=== PATIENT | male | born 1990 | race Caucasian/White ===

== ENCOUNTER 2016-10-09 13:11 | Inpatient (IN) | payer BC, OTHER ==
[~2016-10-09] VITALS: Ht 177.8 cm; Wt 65.3 kg
[2016-10-09 20:20] VITALS: BP 121/79
--- NOTE | 2016-10-09 20:20 | NUR ---
INTAKE ASSESSMENT Ht:5'10" Wt: 144lbs BP:121/79, HR: 93, RR: 16, SpO2: 99% T:98.1 Pt is in stable condition to be admitted on the unit. Unit protocols regarding medications and vital signs Q4H explained to pt. Pt verbalized understanding. Will continue to monitor.
--- NOTE | 2016-10-09 21:00 | NUR ---
ADMISSION NOTE COWS:2, CIWA:2 Pt arrived ambulatory from [facility] Intake to the third floor accompanied by a VALIDATION LEADER at 2030. Pt is a 26 year old male patient admitted on 10/09/16 for Benzo, Opiate and Methamphetamine dependency. Pt is full code with NKA. He reports a PMHx of anxiety, depression, right shoulder surgery (2 years ago) and seizure (3 days ago). He denies having a PCP. Pt brought several home medications which have been reconciled. Pt reports that he has been taking Bactrim for his right arm abscess. He reports that he is here for Xanax, Heroin and Meth. He reports that he was at treatment called [facility] from September -November 2015. He describes his current use as: 1. Xanax 1 mg (intermittently) for 2 months Last dose: Ativan 1 mg prior to admission 2. Heroin IV 1/4 gram daily for 2.5 months Last dose: 0.3 gram IV prior to admission 3. Methamphetamine IV 1 gram daily for 7 months Last dose: 0.4 gram IV prior to admission Pt reports his withdrawal symptoms as " nausea, shakes and vomiting." Upon assessment, pt is alert and oriented x4. Pt is somewhat drowsy, calm and cooperative. Speech is clear but delayed. Heart rate is regular. Pt denies chest pain or SOB. PERRLA, breathing is even and unlabored, lung sounds clear in all lobes. Abdomen is soft and non distended. Bowel sounds present in all quadrants. Last BM 10/09/16. Pt reports BM is regular. Pt's skin is warm and dry. He is noted with right arm abcess d/t IV drug use. Site is hard upon palpation. Closed scabs on bilateral hands and back d/t skin picking. And left leg noted with redness and pain upon palpation d/t IV drug use. Photo taken and placed in chart. MD aware of pt's admission. Pt oriented to room and unit. Pt is safe with bed locked in lowest position, side rails up x2 and call light within reach. Will continue to monitor.
[2016-10-09 21:05] LABS: *AMPHETAMINE, URINE POSITIVE (NEGATIVE); *BARBITURATE, URINE NEGATIVE (NEGATIVE); *CANNABINOID, URINE NEGATIVE (NEGATIVE); *COCCAINE, URINE NEGATIVE (NEGATIVE); *OPIATE, URINE POSITIVE (NEGATIVE); *PHENCYCLIDINE SCREEN,URINE NEGATIVE (NEGATIVE)
[2016-10-09] MEDS ORDERED: CLONIDINE HCL 0.1 MG TABLET PO PRN (21:45)
[2016-10-09] MEDS ORDERED: DIAZEPAM 5 MG TABLET PO PRN (21:45)
[2016-10-09] MEDS ORDERED: IBUPROFEN 400 MG TABLET PO PRN (21:45)
[2016-10-09] MEDS ORDERED: BUPRENORPHINE HCL 2 MG TAB.SUBL SL PRN (21:45)
[2016-10-09] MEDS ORDERED: HYDROXYZINE PAMOATE 25 MG CAPSULE PO PRN (21:45)
[2016-10-09] MEDS ORDERED: MIRALAX 17 GM POWD.PACK PO PRN (21:45)
[2016-10-09] MEDS ORDERED: ACETAMINOPHEN 325 MG TABLET PO PRN (21:45)
[2016-10-09] MEDS ORDERED: METHOCARBAMOL 750 MG TABLET PO PRN (21:45)
[2016-10-09] MEDS ORDERED: ONDANSETRON ODT 4 MG TAB.RAPDIS SL PRN (21:45)
[2016-10-09] MEDS ORDERED: DICYCLOMINE HCL 20 MG TABLET PO PRN (21:45)
[2016-10-09] MEDS ORDERED: diphenhydrAMINE 50 MG CAPSULE PO PRN (21:45)
[2016-10-09] MEDS ORDERED: DIAZEPAM 10 MG TABLET PO PRN ×2 (21:45)
[2016-10-09] MEDS ORDERED: LORAZEPAM 2 MG/1 ML VIAL IM PRN (21:45)
[2016-10-09] MEDS ORDERED: LOPERAMIDE HCL 2 MG CAPSULE PO PRN (21:45)
[2016-10-09 23:15] LABS: ETHANOL < 3 MG/DL (0-0)
[2016-10-09 23:17] LABS: ALANINE AMINOTRANSFERASE 24 U/L (16-63); ALKALINE PHOSPHATASE 88 U/L (50-136); ASPARTATE AMINOTRANSFERASE 18 U/L (15-37); BILIRUBIN,TOTAL 0.4 mg/dL (0.2-1.0); CHLORIDE 101 mmol/L (98-107); CREATININE 1.1 mg/dL (0.6-1.3); GLUCOSE 103 mg/dL (74-106); MAGNESIUM 2.1 mg/dL (1.8-2.4); POTASSIUM 3.9 mmol/L (3.5-5.1); TOTAL PROTEIN, SERUM 6.5 g/dL (6.4-8.2); UREA NITROGEN, BLOOD 11 mg/dL (7-18)
[2016-10-09 23:18] LABS: AMYLASE 58 U/L (25-115); CARBON DIOXIDE 33 mmol/L (21-32); LIPASE 120 U/L (73-393)
[2016-10-09 23:27] LABS: BASOPHILS # (AUTO) 0.2 K/uL (0.0-8.0); BASOPHILS % (AUTO) 1.8 % (0.0-2.0); EOSINOPHILS # (AUTO) 0.3 K/uL (0.0-0.7); EOSINOPHILS % (AUTO) 3.7 % (0.0-7.0); HEMATOCRIT 36.9 % (40-50); HEMOGLOBIN 12.9 G/DL (14.0-18.0); LYMPHOCYTES # (AUTO) 2.4 K/UL (0.8-4.8); LYMPHOCYTES % (AUTO) 28.2 % (20.5-51.5); MEAN CORPUSCULAR HEMOGLOBIN 31.5 UUG (27.0-31.0); MEAN CORPUSCULAR HGB CONC 35 g/dL (32.0-37.0); MEAN CORPUSCULAR VOLUME 90.1 FL (82.0-92.0); MONOCYTES # (AUTO) 0.8 K/UL (0.1-1.30); MONOCYTES % (AUTO) 9.3 % (0.0-11.0); NEUTROPHILS # (AUTO) 4.7 K/UL (1.8-8.9); PLATELET COUNT (AUTO) 272 K/UL (150-450); RED BLOOD CELL COUNT(AUTO) 4.09 MIL/UL (4.7-6.1); WHITE BLOOD COUNT (AUTO) 8.4 K/UL (4.0-11.2)
[2016-10-09 23:28] LABS: THYROID STIMULATING HORMONE 1.257 mIU/mL (0.358-3.740)
[2016-10-10] VITALS: BP 107/64
--- NOTE | 2016-10-10 | NUR ---
COWS/CIWA DEFERRED COWS/CIWA deferred d/t pt lying in bed with eyes closed noted to be asleep. Respirations 16, breathing is even and unlabored, safety measures in place. Will continue to monitor.
[2016-10-10] MEDS ORDERED: IBUP200C48 PO (00:39)
[2016-10-10] MEDS ORDERED: OXYM15MI4 NS (00:41)
[2016-10-10] MEDS ORDERED: CALC100067 PO (00:41)
[2016-10-10] MEDS ORDERED: ROHTO EYE (00:41)
[2016-10-10] MEDS ORDERED: SULF1TAB3 PO (03:49)
[2016-10-10 04:00] VITALS: BP 110/60
--- NOTE | 2016-10-10 04:00 | NUR ---
COWS/CIWA DEFERRED COWS/CIWA deferred d/t pt lying in bed with eyes closed noted to be asleep. No facial grimacing noted. Respirations 16, breathing is even and unlabored, safety measures in place. Will continue to monitor.
--- NOTE | 2016-10-10 06:58 | NUR ---
END OF SHIFT Pt is a 26 year old male admitted on 10/09/16 for Heroin, Meth and Xanax dependency. Pt is full code with NKA. He reports a PMHx of anxiety, depression, right shoulder surgery two years ago and seizure three days ago. He did not receive or request PRN medications. He slept a total of 6 hrs, Intake: 296 mL, Void: x1, BM:0. COWS:2, CIWA:2. Pt remains alert and oriented x4, breathing is even and unlabored, safety measures in place. Will endorse to oncoming shift.
--- NOTE | 2016-10-10 07:30 | NUR ---
Start of shift note; Received report from night nurse. Patient is a 26 year old male admitted on 10/09/16 for Opiate/ Meth/ Benzo dependence. Patient reported history of anxiety, depression, right shoulder surgery, and recent seizure episode. Patient is on full code status, NKA, regular diet. Right arm abscess noted, bilateral hands and back scabs noted due to skin picking. Patient slept for 6 hours, last COWS score of 2 nad last CIWA of 2 at 0400. Patient is on fall and seizure disorder. All safety measures secured. Will continue to monitor patient.
[2016-10-10 08:00] VITALS: BP 133/62
[2016-10-10] MEDS ORDERED: TUBERCULIN,PURIF.PROT.DERIV. 5 TU/0.1 ML TEST ID ONE (09:00)
[2016-10-10] MEDS: MULTIVITAMINS,THERAPEUTIC TABLET PO SCH (09:31)
--- NOTE | 2016-10-10 09:32 | NUR ---
PRN medications; Patient is complaining of muscle aches, generalized pain rated 6/10. PRN Robaxin 750mg PO given and PRN Motrin PO given for pain. Will re-assess patient for effectiveness of medication.
--- NOTE | 2016-10-10 10:32 | NUR ---
Re-assessment; Patient stated decreased muscle aches/ generalized pain. PRN medications effective.
--- NOTE | 2016-10-10 11:34 | NUR ---
PRN medication; Patient's COWS is currently 12. Patient was seen and evaluated by . ordered to give patient PRN Subutex as ordered and to start a 4 day Subutex taper at 1300 today. PRN Subutex 4mg SL given to patient. Instructions given to patient regarding use of medication and route, verbalized understanding. Witnessed patient take the medication and observed patient closely for "cheeking". Educated patient regarding unit protocols and policies, patient verbalized understanding. Addendum: 10/10/16 at 1417 by CLAUDIA PIKE LVN Clarification; Subutex taper to start at 1700 today.
--- NOTE | 2016-10-10 12:04 | NUR ---
Re-assessment; Patient's COWS score has improved and went down to score of 8 from COWS score of 12. Will continue to monitor patient.
--- NOTE | 2016-10-10 12:25 | NUR ---
WOUND CARE CONSULT: PT OFF UNIT AT THIS TIME. PER NURSING STAFF, NO OPEN WOUNDS. DEFER TO MD. WILL SEE PT PT CONDITION PERMITS.
--- NOTE | 2016-10-10 12:52 | NUR ---
WOUND CARE CONSULT: PT PRESENTS WITH RAISED INDURATED AREA TO RT BICEP. PT STATES AREA IS VERY TENDER. RECOMMEND SURGICAL CONSULT. WILL SEE PRN. Addendum: 10/10/16 at 1253 by KAYLIE JAMIL RN Amended: Links added.
[2016-10-10 13:00] VITALS: BP 128/84
[2016-10-10] MEDS ORDERED: KETOROLAC TROMETHAMINE 30 MG INJ IM PRN (13:15)
[2016-10-10] MEDS ORDERED: IBUPROFEN 600 MG TABLET PO PRN (13:30)
[2016-10-10] MEDS: LORAZEPAM 1 MG TABLET PO SCH ×3 (13:41→20:55)
[2016-10-10] MEDS: ACETAMINOPHEN ES 500 MG TABLET PO SCH ×2 (15:33→20:55)
[2016-10-10] MEDS: GABAPENTIN 300 MG CAPSULE PO SCH (15:33)
[2016-10-10 16:00] VITALS: BP 115/72
[2016-10-10] MEDS: BUPRENORPHINE HCL 2 MG TAB.SUBL SL SCH ×2 (17:22→20:55)
--- NOTE | 2016-10-10 18:28 | NUR ---
End of shift note; Patient is AOX4. Patient is a 26 year old male admitted on 10/09/16 for Opiate/ Meth/ Benzo dependence. Patient reported history of anxiety, depression, right shoulder surgery, and recent seizure episode. Patient is on full code status, NKA, regular diet. Right arm abscess noted, bilateral hands and back scabs noted due to skin picking. Patient was evaluated by wound custom decorating consultant, no new orders patient is currently on Bactrim Antibiotic. Patient is on fall and seizure disorder. All safety measures secured. Met all needs.
--- NOTE | 2016-10-10 19:15 | NUR ---
START OF SHIFT Received 26 year old male patient admitted on 10/09/16 for Heroin, Meth and Xanax dependency. Pt is full code with NKA. He reports a PMHX of anxiety, depression, right shoulder surgery two years ago and seizure three days ago. He reports using Heroin IV gram daily for 2.5 months. Last dose was 0.3 gram IV on 10/09/16. Meth IV 1 gram daily for 7 months. Last dose was 0.4 gram on 10/09/16. And Xanax PO 1 mg intermittently. Pt placed on 4 day Subutex and 3 day Ativan taper started today 10/10/16 pt is tolerating well. Pt is alert and oriented x4, breathing is even and unlabored, and safety measures in place. Will continue to monitor.
[2016-10-10 20:00] VITALS: BP 129/81
--- NOTE | 2016-10-10 20:31 | NUR ---
NURSING NOTE Dr. Dixon assessed pt. New order for warm compress on RUE every hour x15 min noted and carried out.
[2016-10-10] MEDS: FAMOTIDINE 20 MG TABLET PO SCH (20:55)
[2016-10-10] MEDS: SULFAMETH/TRIMETH 800/160 MG TABLET PO SCH (20:55)
[2016-10-10] MEDS ORDERED: GABAPENTIN 300 MG CAPSULE PO SCH (21:00)
--- NOTE | 2016-10-10 21:00 | NUR ---
NURSING NOTE Cigarette roads supervisor was found during medication administration on pt's bed. Contraband was confiscated, SPEED OPERATOR supervisor grips and CN notified. Educated pt about rules and regulations of the unit. Pt verbalized understanding. Will monitor.
[2016-10-10] MEDS: OXYMETAZOLINE NASAL 0.05% 15 ML SPRAY NS PRN (21:15)
--- NOTE | 2016-10-10 21:15 | NUR ---
PRN AFRIN Pt complains of nasal congestion. PRN Afrin administered as ordered. Respirations 16, safety measures in place. Will monitor effectiveness.
--- NOTE | 2016-10-10 21:30 | NUR ---
PRN AFRIN REASSESSMENT PRN medication effective. Pt reports decrease in nasal congestion. Breathing even and unlabored, safety measures in place. Will continue to monitor.
[2016-10-10] MEDS ORDERED: IBUPROFEN 400 MG TABLET PO PRN (21:45)
--- NOTE | 2016-10-10 22:35 | NUR ---
PRN TORADOL Pt complains of 9/10 achy left lower back pain. Pt observed with facial grimacing, restlessness, irritability, and agitation. PRN Toradol administered as ordered. Breathing even and unlabored, safety measures in place. Will monitor effectiveness.
--- NOTE | 2016-10-10 23:35 | NUR ---
PRN TORADOL REASSESSMENT PRN medication effective. Pt lying in bed resting comfortably with eyes closed. No facial grimacing observed. Breathing is even and unlabored, safety measures in place. Will monitor.
[2016-10-11] VITALS: BP 124/78
--- NOTE | 2016-10-11 | NUR ---
COWS/CIWA COWS, CIWA deferred d/t pt is lying in bed with eyes closed noted to be asleep. Respirations 16, breathing is even and unlabored. Safety measures in place. Will continue to monitor.
--- NOTE | 2016-10-11 | NUR ---
VS/COWS AND CIWA PATIENT REFUSED VS . UNABLE TO COMPLETE COWS AND CIWA ASSESSMENT. RESPIRATION EVEN AND UNLABORED. RR 14. NO S/S OF DISTRESS. WILL CONTINUE TO MONITOR Addendum: 10/12/16 at 0658 by SHANA CALVERT LVN ERROR : (TIME) CHARTING
[2016-10-11 04:00] VITALS: BP 112/65
--- NOTE | 2016-10-11 04:00 | NUR ---
COWS/CIWA DEFERRED COWS, CIWA deferred d/t pt is lying in bed with eyes closed noted to be asleep. Respirations 16, breathing is even and unlabored. Safety measures in place. Will continue to monitor.
--- NOTE | 2016-10-11 07:05 | NUR ---
END OF SHIFT Pt is a 26 year old male patient admitted on 10/09/16 for Heroin, Meth and Xanax dependency. Pt is full code with NKA. He reports a PMHX of anxiety, depression, right shoulder surgery two years ago and seizure three days ago. Pt continues on 4 day Subutex and 3 day Ativan taper started on 10/10/16 and tolerating well. Pt was seen and examined by Dr. Dixon for new order of warm compress Q1hr x15 min. At 2115 pt received PRN Afrin d/t complaints of nasal congestion. At 2235 pt complained of 9/10 left lower back pain, he received PRN Toradol. He slept a total of 7hrs, Intake:855mL Void:x1 BM:0 COWS:10 CIWA:7 Pt remains alert and oriented x4, breathing is even and unlabored, and safety measures in place. Endorsed to oncoming shift.
--- NOTE | 2016-10-11 07:41 | NUR ---
Start of shift note; Received report from night nurse. Patient is a 26 year old male admitted on 10/09/16 for Opiate/ Meth/ Benzo dependence. Patient reported history of anxiety, depression, right shoulder surgery, and recent seizure episode. Patient is on full code status, NKA, regular diet. Right arm abscess noted, bilateral hands and back scabs noted due to skin picking. Patient slept for 7 hours, last COWS score of 10 and last CIWA of 7 at 0400. Patient is on fall and seizure disorder. All safety measures secured. Will continue to monitor patient.
[2016-10-11 08:00] VITALS: BP 127/74
[2016-10-11] MEDS ORDERED: BUPRENORPHINE HCL 2 MG TAB.SUBL SL SCH (09:00)
[2016-10-11] MEDS: ACETAMINOPHEN ES 500 MG TABLET PO SCH ×3 (09:09→20:16)
[2016-10-11] MEDS: FAMOTIDINE 20 MG TABLET PO SCH ×2 (09:09→20:00)
[2016-10-11] MEDS: SULFAMETH/TRIMETH 800/160 MG TABLET PO SCH ×2 (09:10→20:00)
[2016-10-11] MEDS: LORAZEPAM 1 MG TABLET PO SCH ×3 (09:10→20:00)
[2016-10-11] MEDS: MULTIVITAMINS,THERAPEUTIC TABLET PO SCH (09:10)
[2016-10-11] MEDS: GABAPENTIN 300 MG CAPSULE PO SCH ×3 (09:10→20:00)
[2016-10-11 12:00] VITALS: BP 107/58
--- NOTE | 2016-10-11 12:21 | NUR ---
Client was encouraged by therapist to attend daily group psychotherapy at 11am and 3:30pm. Client expressed that he would consider going to group if he felt up to it.
[2016-10-11 14:09] LABS: HEPATITIS B SURFACE AG Negative (Negative)
[2016-10-11] MEDS: BUPRENORPHINE HCL 2 MG TAB.SUBL SL SCH ×2 (15:34→20:02)
[2016-10-11] MEDS: METHOCARBAMOL 750 MG TABLET PO SCH ×2 (15:35→20:00)
[2016-10-11 16:00] VITALS: BP 108/62
--- NOTE | 2016-10-11 16:55 | NUR ---
US renal result; MD ordered US renal procedure d/t flank pain. Result is normal (unremarkable renal ultrasound). Patient denies pain at this time.
--- NOTE | 2016-10-11 18:23 | NUR ---
End of shift note; Patient is AOX4. Patient is a 26 year old male admitted on 10/09/16 for Opiate/ Meth/ Benzo dependence. Patient reported history of anxiety, depression, right shoulder surgery, and recent seizure episode. Patient is on full code status, NKA, regular diet. Right arm abscess noted, bilateral hands and back scabs noted due to skin picking. Patient was evaluated by infectious disease doctor, no new orders patient is currently on Bactrim Antibiotic and warm compress treatment. Patient is on fall and seizure disorder. All safety measures secured. Met all needs.
[2016-10-11 20:00] VITALS: BP 125/74
--- NOTE | 2016-10-11 20:00 | NUR ---
START OF SHIFT NOTE PATIENT IN ROOM. PATIENT ALERT AND ORIENTED X 4. UPON GREETING PATIENT STATES HE'S TIRED, SWEATING, ANXIOUS, NAUSEATED NO EMESIS BUT STATES HE DOES NOT ANY MEDICATION FOR IT, ABDOMINAL CRAMPING. MUSCLE PAIN 3/10, TOLERABLE. HE STATES HIS APPETITE IS ALRIGHT , IT'S COMING BACK. ABSCESS ON RIGHT ARM INTACT. RECEIVED REPORT FROM DAY SHIFT NURSE. PATIENT IS A 26 YEAR OLD MALE, ADMITTED FOR BENZO,OPIATE AND METH DEPENDENCE. PATIENT IS ON 4 DAY SUBUTEX AND 3 DAY ATIVAN TAPER. PATIENT'S DRUG OF CHOICE ARE HEROIN IV 1/4TH GRAM DAILY FOR 2.5 MONTHS, METH IV 1 GRAM DAILY FOR 7 MONTHS AND XANAX PO 1 MG INTERMITTENTLY FOR 2 MONTHS . PATIENT REPORTS PMH OF ANXIETY, DEPRESSION, RIGHT SHOULDER SURGERY 2 YEARS AGO AND SEIZURE "3 DAYS AGO". PATIENT IS FULL CODE, REGULAR DIET AND NO KNOWN ALLERGY. PATIENT HAS RIGHT ARM ABSCESS AND BILATERAL HANDS AND BACK SCABS D/T PICKING. PATIENT DID NOT REQUIRE ANY PRN MEDICATION DURING THE DAY. LAST COWS 5 AND CIWA 3. ON FALL/SEIZURE PRECAUTION. SAFETY MEASURES IN PLACE. CALL LIGHT IN REACH. WILL CONTINUE TO MONITOR.
--- NOTE | 2016-10-11 20:00 | NUR ---
BEHAVIOR NOTE PATIENT NOTED CHEEKING HIS SUBUTEX DURING MED PASS. EDUCATE PATIENT RISK/BENEFITS OF SUBUTEX AND RULES/POLICY OF THE UNIT. PATIENT ADVOCATE "SONA" TALKED TO PATIENT. PATIENT DEMONSTRATED AGREEMENT AND UNDERSTANDING. WILL CONTINUE TO MONITOR.
--- NOTE | 2016-10-12 | NUR ---
VS/COWS AND CIWA PATIENT REFUSED VS . UNABLE TO COMPLETE COWS AND CIWA ASSESSMENT. RESPIRATION EVEN AND UNLABORED. RR 14. NO S/S OF DISTRESS. WILL CONTINUE TO MONITOR
[2016-10-12 04:00] VITALS: BP 130/70
[2016-10-12] MEDS: OXYMETAZOLINE NASAL 0.05% 15 ML SPRAY NS PRN ×2 (05:47→20:05)
--- NOTE | 2016-10-12 05:47 | NUR ---
PRN AFRIN NASAL SPRAY ADMINISTRATION PATIENT C/O NASAL CONGESTION. PRN AFRIN NASAL SPRAY GIVE. WILL MONITOR FOR EFFECTIVENESS.
--- NOTE | 2016-10-12 06:47 | NUR ---
PRN AFRIN NASAL SPRAY RE-ASSESSMENT PATIENT STATES AFRIN NASAL SPRAY HELPFUL. WILL CONTINUE TO MONITOR.
--- NOTE | 2016-10-12 07:35 | NUR ---
END OF SHIFT NOTE PATIENT REMAIN ALERT AND ORIENTED X 4. PATIENT REPORTED HE'S TIRED, SWEATING, ANXIOUS, NAUSEATED NO EMESIS BUT STATES HE DOES NOT ANY MEDICATION FOR IT, ABDOMINAL CRAMPING. MUSCLE PAIN 3/10, TOLERABLE DURING SHIFT. HE STATED THAT HIS APPETITE IS ALRIGHT AND IT'S COMING BACK. ABSCESS ON RIGHT ARM INTACT. ON BACTRIM ANIBIOTIC WITH NO ADVERSE REACTION. NO ADVERSE REACTION. ENCOURAGE FLUIDS. PATIENT IS A 26 YEAR OLD MALE, ADMITTED FOR BENZO,OPIATE AND METH DEPENDENCE. PATIENT IS ON 4 DAY SUBUTEX AND 3 DAY ATIVAN TAPER. PATIENT'S DRUG OF CHOICE ARE HEROIN IV 1/4TH GRAM DAILY FOR 2.5 MONTHS, METH IV 1 GRAM DAILY FOR 7 MONTHS AND XANAX PO 1 MG INTERMITTENTLY FOR 2 MONTHS . PATIENT REPORTS PMH OF ANXIETY, DEPRESSION, RIGHT SHOULDER SURGERY 2 YEARS AGO AND SEIZURE "3 DAYS AGO". PATIENT IS FULL CODE, REGULAR DIET AND NO KNOWN ALLERGY. PATIENT WAS GIVEN PRN AFRIN NASAL SPRAY FOR NASAL CONGESTION DURING SHIFT. PATIENT NOTED CHEEKING HIS SUBUTEX, EDUCATED PATIENT ON POLICIES AND PROCEDURE WHO VERBALIZES UNDERSTANDING. PATIENT ADVOCATE TALKED TO PATIENT. ON FALL/SEIZURE PRECAUTION. SAFETY MEASURES IN PLACE. CALL LIGHT IN REACH. WILL CONTINUE TO MONITOR. SLEPT 8 HOURS. FLUID INTAKE 1,120 ML. VOIDED X 2. NO BM. LAST COWS 1 AND CIWA 1 .
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
[2016-10-12] MEDS: MULTIVITAMINS,THERAPEUTIC TABLET PO SCH (08:11)
[2016-10-12] MEDS: BUPRENORPHINE HCL 2 MG TAB.SUBL SL SCH ×2 (08:11→15:00)
[2016-10-12] MEDS: METHOCARBAMOL 750 MG TABLET PO SCH ×3 (08:11→21:53)
[2016-10-12] MEDS: GABAPENTIN 300 MG CAPSULE PO SCH ×3 (08:11→21:53)
[2016-10-12] MEDS: SULFAMETH/TRIMETH 800/160 MG TABLET PO SCH ×2 (08:11→21:53)
[2016-10-12] MEDS: FAMOTIDINE 20 MG TABLET PO SCH ×2 (08:11→21:53)
[2016-10-12 08:14] VITALS: BP 119/69
[2016-10-12] MEDS ORDERED: LORAZEPAM 1 MG TABLET PO PRN (09:00)
[2016-10-12] MEDS: ACETAMINOPHEN ES 500 MG TABLET PO SCH ×3 (09:01→21:53)
[2016-10-12] MEDS ORDERED: LORAZEPAM 1 MG TABLET PO SCH (11:30)
--- NOTE | 2016-10-12 11:30 | NUR ---
Client refused to take Ativan 1mg until he speak to Dr. Ontiveros.
--- NOTE | 2016-10-12 11:35 | NUR ---
Dr. Ontiveros Notified of client refused to take Ativan 1mg until seen by MD, Dr. Ontiveros will see the client shortly. Client made aware and verbalized understanding.
[2016-10-12 12:34] VITALS: BP 130/81
--- NOTE | 2016-10-12 13:15 | NUR ---
Per Dr. Ontiveros to hold Ativan 1mg scheduled at 1130
--- NOTE | 2016-10-12 15:40 | NUR ---
Client refused Subutex 2mg taper medication, Dr. Ontiveros made aware. Client continues to verbalized the need to be discharge sooner.
[2016-10-12 17:00] VITALS: BP 134/85
--- NOTE | 2016-10-12 17:33 | NUR ---
PRN VISTARIL, BENTYL CLONIDINE Client reports anxiety, abdominal spasms, and irritability, Vistaril 50mg, Bentyl 20mg, and Clonidine 0.1mg PO administered respectively. Risk/benefits discuss, client verbalized understanding. Call light within reach.
--- NOTE | 2016-10-12 18:33 | NUR ---
Reassessment PRN VISTARIL, BENTYL CLONIDINE Client reports some relief from anxiety, abdominal spasms, and irritability, Vistaril 50mg, Bentyl 20mg, and Clonidine 0.1mg effective. Call light within reach
[2016-10-12 18:39] LABS: *AMPHETAMINE, URINE POSITIVE (NEGATIVE); *BARBITURATE, URINE NEGATIVE (NEGATIVE); *CANNABINOID, URINE NEGATIVE (NEGATIVE); *COCCAINE, URINE NEGATIVE (NEGATIVE); *OPIATE, URINE POSITIVE (NEGATIVE); *PHENCYCLIDINE SCREEN,URINE NEGATIVE (NEGATIVE)
--- NOTE | 2016-10-12 19:20 | NUR ---
END OF SHIFT Endorsed to incoming nurse, client is in room, he presents with depressed mood, flat affect, stating that he wants to AMA, PRN'S Vistaril 50mg, Bentyl 20mg, and Clonidine 0.1mg for anxiety, abdominal spasms, and irritability respectively. Client refused his Ativan and Subutex taper, he is schedule for discharge tomorrow am to [facility]. Last COWS 3. He attend to 2/3 of group therapy. Skin on RUE & LLE intact, antibiotic PO therapy continues. Call light within reach. safety measures instituted.
[2016-10-12 20:00] VITALS: BP 120/81
--- NOTE | 2016-10-12 20:00 | NUR ---
START OF SHIFT NOTE RECEIVED PATIENT OUTSIDE HIS ROOM, SOCIALIZING WITH OTHER PATIENT . RECEIVED REPORT FROM DAY SHIFT NURSE. PATIENT IS A 26 YEAR OLD MALE, ADMITTED FOR BENZO,OPIATE AND METH. PATIENT WAS PLACED ON 4 DAYS SUBUTEX AND 3 DAY ATIVAN TAPER. PATIENT IS FULL CODE, REGULAR DIET AND NO KNOWN ALLERGY. PATIENT REPORTS PMH OF ANXIETY, DEPRESSION, RIGHT SHOULDER SURGERY (2 YEARS AGO) AND SEIZURE (3 DAYS AGO) . PATIENT IS ON FALL PRECAUTION. PATIENT WAS TRYING LEAVE AMA TODAY. PATIENT REFUSED TO TAKE HIS PERTINENT MEDICATIONS . MD AND PATIENT ADVOCATE TALKED TO PATIENT. PATIENT IS MEDICALLY CLEARED TO BE DISCHARGE TOMORROW. PATIENT WAS GIVEN PRN VISTARIL, CLONIDINE AND BENTYL DURING THE DAY. LAST COWS 4 AND CIWA 3. UPON GREETING PATIENT NOTED WITH NASAL CONGESTION. PATIENT REQUESTED TO HAVE HIS AFRIN NASAL SPRAY. PATIENT STATES HE'S LEAVING TODAY BUT NOT SURE WHERE HE'S GOING. EXPLAINED TO PATIENT REGARDING DISCHARGING TOMORROW. PATIENT STATES HE'LL STAY AND AGREED TO LEAVE TOMORROW. SAFETY MEASURES IN PLACE. CALL LIGHT IN REACH. WILL CONTINUE TO MONITOR.
--- NOTE | 2016-10-12 20:05 | NUR ---
PRN AFRIN NASAL SPRAY ADMINISTRATION PATIENT C/O NASAL CONGESTION. PRN AFRIN NASAL SPRAY GIVEN. WILL MONITOR FOR EFFECTIVENESS
--- NOTE | 2016-10-12 21:05 | NUR ---
PRN AFRIN NASAL SPRAY RE-ASSESSMENT PATIENT STATES AFRIN NASAL HELPFUL , ABLE TO BREATH EFFECTIVELY. WILL CONTINUE TO MONITOR.
--- NOTE | 2016-10-12 22:21 | NUR ---
ONE TIME DESYREL ADMINISTRATION PATIENT REQUESTED SLEEP AID. REFUSED BENADRYL. ONE TIME DESYREL OBTAIN FROM DR. SHU BARNEY. WILL MONITOR FOR EFFECTIVENESS.
[2016-10-12] MEDS ORDERED: TRAZODONE 50 MG TABLET PO ONE (22:30)
[2016-10-12] MEDS ORDERED: SULF1TAB3 PO (23:18)
[2016-10-12] MEDS ORDERED: CLON0.1T14 PO (23:18)
[2016-10-12] MEDS ORDERED: DICY20TA28 PO (23:18)
[2016-10-12] MEDS ORDERED: METH-33 PO (23:18)
[2016-10-12] MEDS ORDERED: HYDR-3895 PO (23:18)
[2016-10-12] MEDS ORDERED: GABA-534 PO (23:18)
[2016-10-13] VITALS: BP 111/58
--- NOTE | 2016-10-13 | NUR ---
ONE TIME TRAZADONE RE-ASSESSMENT PATIENT IN BED WITH EYES CLOSED. RESPIRATION EVEN AND UNLABORED. SAFETY MEASURES IN PLACE. CALL LIGHT IN REACH. WILL CONTINUE TO MONITOR.
[2016-10-13 04:00] VITALS: BP 99/51
--- NOTE | 2016-10-13 07:05 | NUR ---
Start of Shift Endorsement received from nightshift nurse. Pt is 26 y/o male admitted for Xanax, Heroin and meth. Pt has completed a 4 day Subutex and 3 day Ativan taper. Pt has completed both tapers; not withdrawing at this time AEB COWS 0, CIWA 0 at midnight. Pt is scheduled to be discharged today, 10/13/16. PT received PRN Trazodone during nightshift. Pt reports sleeping 6 hours. VS WNL, Full Code. PT is alert and oriented x4. Pt is in STABLE condition at this time. Remains compliant with medication and diet regimen. All needs have been met, All safety measures in place per hospital policy. Bed in lowest position, side rails up x2, call-light within reach. Will continue to monitor
--- NOTE | 2016-10-13 07:26 | NUR ---
END OF SHIFT NOTE MONITORED PATIENT THROUGHOUT SHIFT. PATIENT IS A 26 YEAR OLD MALE, ADMITTED FOR BENZO,OPIATE AND METH. PATIENT WAS PLACED ON 4 DAYS SUBUTEX AND 3 DAY ATIVAN TAPER. PATIENT IS FULL CODE, REGULAR DIET AND NO KNOWN ALLERGY. PATIENT REPORTS PMH OF ANXIETY, DEPRESSION, RIGHT SHOULDER SURGERY (2 YEARS AGO) AND SEIZURE (3 DAYS AGO) . PATIENT IS ON FALL PRECAUTION. PATIENT IS MEDICALLY CLEARED TO BE DISCHARGE TODAY. PATIENT WAS GIVEN PRN AFRIN [employer] SPRAY AT 2004 AND ONE TIME TRAZADONE AT 2220. PATIENT VERBALIZED WANTING TO LEAVE AMA DURING SHIFT. PATIENT STATES HE WANTS TO LEAVE BUT NOT SURE WHERE HE'S GOING. EXPLAINED TO PATIENT REGARDING SCHEDULED DISCHARGE . PATIENT STAYED AND AGREED TO LEAVE TODAY. SAFETY MEASURES IN PLACE. CALL LIGHT IN REACH. WILL CONTINUE TO MONITOR. PATIENT SLEPT 6 HOURS. FLUID INTAKE OF 547 ML. VOIDED X 1. NO BM. LAST COWS 0 AND CIWA 1.
[2016-10-13] MEDS: OXYMETAZOLINE NASAL 0.05% 15 ML SPRAY NS PRN (07:57)
[2016-10-13 08:00] VITALS: BP 117/73
[2016-10-13] MEDS: METHOCARBAMOL 750 MG TABLET PO SCH (08:00)
[2016-10-13] MEDS: SULFAMETH/TRIMETH 800/160 MG TABLET PO SCH (08:00)
[2016-10-13] MEDS: GABAPENTIN 300 MG CAPSULE PO SCH (08:00)
[2016-10-13] MEDS: MULTIVITAMINS,THERAPEUTIC TABLET PO SCH (08:00)
[2016-10-13] MEDS: ACETAMINOPHEN ES 500 MG TABLET PO SCH (08:00)
[2016-10-13] MEDS: FAMOTIDINE 20 MG TABLET PO SCH (08:00)
[2016-10-13] MEDS ORDERED: BUPRENORPHINE HCL 2 MG TAB.SUBL SL SCH (09:00)
--- NOTE | 2016-10-13 09:54 | NUR ---
Discharge note PT has been discharged from [facility] to [facility] PT is in Stable condition, VS WNL. Denies suicidal and homicidal ideations at this time. . All documentation has been completed, paperwork signed and dated. Pt left with all of his belongings, medications and prescriptions. Pt has been discharged from [facility] on 10/13/16 at 0954. has been Notified.
== END 2016-10-13 09:54 | disposition other institution (70) | DRG 895 ==
LOC: SRC 19:45
PROVIDERS: ADMIT Internal Medicine; ATTEND Internal Medicine
PROC: HZ2ZZZZ Detoxification Services for Substance Abuse Treatment (ICD-10-PCS; principal; 2016-10-09)
PROC: HZ31ZZZ Individual Counseling for Substance Abuse Treatment, Behavioral (ICD-10-PCS; 2016-10-11)
PROC: HZ41ZZZ Group Counseling for Substance Abuse Treatment, Behavioral (ICD-10-PCS; 2016-10-11)
DX: F11.23 Opioid dependence with withdrawal (principal); L03.116 Cellulitis of left lower limb; L03.113 Cellulitis of right upper limb; L02.413 Cutaneous abscess of right upper limb; F15.120 Other stimulant abuse with intoxication, uncomplicated; F17.210 Nicotine dependence, cigarettes, uncomplicated; S41.131S Puncture wound without foreign body of right upper arm, sequela; S81.832S Puncture wound without foreign body, left lower leg, sequela; X78.8XXS Intentional self-harm by other sharp object, sequela; I80.02 Phlebitis and thrombophlebitis of superficial vessels of left lower extremity; I80.8 Phlebitis and thrombophlebitis of other sites; D64.9 Anemia, unspecified; E88.09 Other disorders of plasma-protein metabolism, not elsewhere classified; F13.230 Sedative, hypnotic or anxiolytic dependence with withdrawal, uncomplicated; F41.9 Anxiety disorder, unspecified; F32.9 Major depressive disorder, single episode, unspecified
CPT/HCPCS: 36415; 70030-TC; 76770; 80307; 80324; 80361; 83690; 83735; 84443; 85025; 86580; 86705; 87340; 87806; A4663; G0480; J1885